=== PATIENT | male | born 1965 | race Caucasian/White ===

== ENCOUNTER 2023-05-23 07:00 | Outpatient (CLI) | payer BC ==
--- NOTE | 2023-05-23 15:21 | XRAY Report ---
PROCEDURE: Chest 2V INDICATIONS: COUGH/SHORTNESS OF BREATH TECHNIQUE: 2 views of the chest were acquired. COMPARISON: None. FINDINGS: Surgical changes and devices: None. Lungs and pleura: No pleural effusions or pneumothorax. Lungs are clear. Mediastinum: Mediastinal contours appear normal. Heart size is normal. Bones and chest wall: No suspicious bony lesions. Overlying soft tissues appear unremarkable. Not e is made of what appears to be a healed right posterior lateral lower rib fracture, approximately th e ninth rib on the right. IMPRESSION: No acute cardiopulmonary process. Old right posterior ninth rib fracture. Reviewed by: Ramos Matthews MD on 05/23/2023 3:20 PM PST Approved by: Ramos Matthews MD on 05/23/2023 3:20 PM PST Station ID: [id number]
== END 2023-05-23 23:59 | disposition home or self-care (01) ==
LOC: DI.S 07:00
PROVIDERS: ATTEND Physician Assistant Medical
DX: R06.02 Shortness of breath (principal); R05.9 Cough, unspecified; S22.31XD Fracture of one rib, right side, subsequent encounter for fracture with routine healing